=== PATIENT | female | born 1995 | race American Indian/Alaskan Native ===

== ENCOUNTER 2017-05-27 12:56 | Outpatient (CLI) | payer MEDICAID ==
[2017-05-27] MEDS ORDERED: LACTATED RINGERS 500 ML IV ONE (13:23)
[2017-05-27 13:30] VITALS: BP 122/65
[2017-05-27] MEDS ORDERED: LACTATED RINGERS 1,000 ML IV SCH (14:00)
[2017-05-27] MEDS ORDERED: PHENERGAN PR PRN (14:05)
[2017-05-27 14:32] LABS: Urine Drugs of Abuse Note Disclamer
[2017-05-27 14:36] LABS: Hematocrit 29.1 % (30.3-42.9); Hemoglobin 9.8 gm/dl (10.1-14.3); Mean Corpuscular HGB Conc 34 % (30-34); Mean Corpuscular Hemoglobin 28 pg (28-32); Mean Corpuscular Volume 81 fl (79-97); Platelet Count 210 K/mm3 (140-440); Red Blood Count 3.58 M/mm3 (3.65-5.03); Red Cell Distribution Width 12.7 % (13.2-15.2); White Blood Count 7.8 K/mm3 (4.5-11.0)
[2017-05-27 14:40] LABS: Bilirubin,Urine NEG (Negative); Blood,Urine NEG (Negative); Ketones,Urine NEG (Negative); Leukocyte Esterase,Urine TR (Negative); Mucus,Urine FEW /HPF; Nitrite,Urine NEG (Negative); Protein,Urine <15 mg/dL mg/dL (Negative); RBC,Urine < 1.0 /HPF (0.0-6.0); Urobilinogen,Urine < 2.0 mg/dL (<2.0)
[2017-05-27 15:57] LABS: Alanine Aminotransferase 8 units/L (7-56); Albumin 3.1 g/dL (3.9-5); Albumin/Globulin Ratio 0.9 %; Alkaline Phosphatase 68 units/L (35-129); Anion Gap 16 mmol/L; BUN/Creatinine Ratio 5; Bilirubin,Total < 0.20 mg/dL (0.1-1.2); Blood Urea Nitrogen 2 mg/dL (7-17); Calcium 8.4 mg/dL (8.4-10.2); Carbon Dioxide 21 mmol/L (22-30); Chloride 103.5 mmol/L (98-107); Glucose 74 mg/dL (65-100); Potassium 3.4 mmol/L (3.6-5.0); Sodium 137 mmol/L (137-145); Total Protein 6.5 g/dL (6.3-8.2)
== END 2017-05-27 17:25 | disposition home or self-care (01) ==
LOC: TRG 12:56
PROVIDERS: ATTEND Obstetrics & Gynecology
DX: O47.03 False labor before 37 completed weeks of gestation, third trimester (principal); Z3A.29 29 weeks gestation of pregnancy
CPT/HCPCS: 36415; 59025; 80053; 80307; 81001; 85027; 96360; 96361; J7120

== ENCOUNTER 2017-06-07 11:48 | Outpatient (CLI) | payer MEDICAID ==
[2017-06-07] MEDS ORDERED: LACTATED RINGERS 500 ML IV ONE (13:02)
[2017-06-07 13:15] VITALS: BP 102/53
== END 2017-06-07 14:20 | disposition home or self-care (01) ==
LOC: TRG 11:48
PROVIDERS: ATTEND Obstetrics & Gynecology
DX: O47.03 False labor before 37 completed weeks of gestation, third trimester (principal); Z3A.30 30 weeks gestation of pregnancy
CPT/HCPCS: 59025; 96360; J7120

== ENCOUNTER 2017-07-06 13:32 | Inpatient (IN) | payer MEDICAID ==
[2017-07-06] MEDS ORDERED: LACTATED RINGERS 500 ML IV ONE (14:26)
[2017-07-06] MEDS ORDERED: BRETHINE IVP ONE ×2 (15:23→18:00)
--- NOTE | 2017-07-06 16:34 | History and Physical Report ---
History of Present Illness Date of examination: 07/06/17 History of present illness: Patient presented to labor and delivery complaints of frequent contractions since early a.m. Initially patient exam was 1 cm. And had contractions every 3 -5 minutes. In triage the patient at treatment with IV hydration and subcutaneous terbutaline without suppressing her contractions. Patient's cervix did not change with these contractions. Patient's been admitted for tocolysis. Menstrual History Regularity: regular Menses every: 28 days Duration: 5 LMP: 11/05/2016 LMP reliability: definite test type: urine test Date: 04/24/2017 Planned ? no EDC Calculations LMP: 08/12/2017 EDC Confirmation: 08/12/2017 Past History : 1 Term Births: 0 Premature Births: 0 Living Children: 0 Para: 0 Mult. Births: 0 Prev : 0 Aborta: 0 Elect. Ab: 0 Spont. Ab: 0 Ectopics: 0 Past Medical History: Negative Past Medical History Past Surgical History: Negative Past Surgical History Past Medical History Surgery (Non-medical assistant ob gyn): Negative Past Surgical History Abnormal PAP: negative ANUP Exposure: negative Infertility: negative Uterine Anomaly: negative Uterine Surgery (not C/S): negative Other Gynecologic Problems: negative Medical History Comments: neg Family Hx: neg Social Hx: single no e/t/d Infection History Hx of STD: none Partner hx. of genital herpes: no Rash, Viral, or Febrile illness since last LMP? no Varicella/Chicken Pox Status: Immunized Genetic History Congenital Heart Defect: Mom: no Dad: no Tena Disease: Mom: no Dad: no Thalassemia Mom: no Dad: no Neural Tube Defect Mom: no Dad: no Down's Syndrome Mom: no Dad: no Shiv-Sachs Mom: no Dad: no Sickle Cell Disease/Trait Mom: no Dad: no Hemophilia Mom: no Dad: no Muscular Dystrophy Mom: no Dad: no Cystic Fibrosis Mom: no Dad: no [place] Chorea Mom: no Dad: no Mental Retardation Mom: no Dad: no Fragile X Mom: no Dad: no Other Genetic/Chromosomal Disorder Mom: no Dad: no Child w/other defect Mom: no Dad: no Enviromental Exposures Xray Exposure: no Medication, drug, or alcohol use since LMP: no Chemical/Other Exposure: no Exposure to Cat Liter: no Hx of Parvovirus (Fifth Disease): no Occupational Exposure to Children: none Current Allergies (reviewed today): No known allergies Past History Past Medical History: other (See HPI) Past Surgical History: other (See HPI) BACK FACER History: other (See HPI) Family/Genetic History: other (See HPI) Social history: other (See HPI) - Obstetrical History Expected Date of Delivery: 08/12/17 Actual Gestation: 34 Week(s) 5 Day(s) : 1 Para: 0 Hx # Term Pregnancies: 0 Number of Pregnancies: 0 Spontaneous Abortions: 0 Induced : 0 Number of Living Children: 0 Medications and Allergies Allergies Allergy/AdvReac Type Severity Reaction Status Date / Time No Known Allergies Allergy Unverified 05/27/17 13:22 Home Medications Medication Instructions Recorded Confirmed Last Taken Type No Known Home Medications [No 05/27/17 06/13/17 Unknown History Reported Home Medications] - Vital Signs Vital signs: Vital Signs Pulse BP 100 H 125/77 07/06/17 13:56 07/06/17 13:56 Temp Pulse Resp BP Pulse Ox 100 H 125/77 07/06/17 13:56 07/06/17 13:56 - Physical Exam Breasts: Positive: deferred Cardiovascular: Regular rate Lungs: Positive: Normal air movement Abdomen: Positive: normal appearance, soft Genitourinary (Female): Positive: normal external genitalia Vulva: both: normal Vagina: Positive: normal moisture Uterus: Positive: enlarged Anus/Rectum: Positive: normal perianal skin - Obstetrical FHR: category 2 Uterine Contraction Monitor Mode: Palpation Cervical Dilatation: 1 Cervical Effacement Percentage: 80 station: -2 Uterine Contraction Frequency (min): 3 to 5 Uterine Contraction Pattern: Regular Uterine Tone Measurement Phase: Resting Uterine Contraction Intensity: Moderate Results All other labs normal. Assessment and Plan - Patient Problems (1) labor Current Visit: Yes Status: Acute Qualifiers: labor trimester: third trimester Fetus number: single or unspecified fetus Plan to address problem: Patient admitted we'll start IV magnesium sulfate. Discussed with the patient and her mother risks of delivery. Discussed the risks including down along immaturity. Also discussed the side effects of IV magnesium sulfate. Patient's questions answered. Will monitor to rule out progression of labor. ICU team of been notified of patient's admission. (2) with 34 completed weeks gestation Current Visit: Yes Status: Acute
[2017-07-06] MEDS ORDERED: MILK OF MAGNESIA PO PRN (16:42)
[2017-07-06] MEDS ORDERED: ALUM-MAG HYDROX-SIMETH 200-200-20MG/5ML PO PRN (16:42)
[2017-07-06] MEDS ORDERED: TYLENOL PO PRN (16:42)
[2017-07-06] MEDS ORDERED: COLACE PO PRN (16:42)
[2017-07-06] MEDS ORDERED: MAGNESIUM SULFATE 4GM/100ML 4 GM/100 ML BAG IV ONE (16:48)
[2017-07-06] MEDS ORDERED: LACTATED RINGERS 1,000 ML IV SCH (17:00)
[2017-07-06] MEDS: STADOL IV PRN ×3 (17:38→23:05)
[2017-07-06] MEDS ORDERED: MAGNESIUM SULFATE 40GM/1000ML 40 GM/1,000 ML BAG IV SCH (17:45)
[2017-07-06] MEDS: POLYCILLIN/NS 2 GM/100 ML 2 GM/100 ML BAG IV SCH (18:01)
[2017-07-06 21:16] LABS: Hematocrit 33.8 % (30.3-42.9); Hemoglobin 10.8 gm/dl (10.1-14.3); Mean Corpuscular HGB Conc 32 % (30-34); Mean Corpuscular Volume 80 fl (79-97); Platelet Count 249 K/mm3 (140-440); Red Blood Count 4.21 M/mm3 (3.65-5.03); Red Cell Distribution Width 12.6 % (13.2-15.2)
[2017-07-06 21:17] LABS: Mean Corpuscular Hemoglobin 26 pg (28-32); White Blood Count 23.6 K/mm3 (4.5-11.0)
[2017-07-06 22:39] LABS: Basophils % (Manual) 0 % (0.0-1.8); Blastocytes % (Manual) 0 %; Eosinophils % (Manual) 0 % (0.0-4.3)
[2017-07-06 22:40] LABS: Diff Status Complete; Hypochromasia 1+; Ovalocytes Few
--- NOTE | 2017-07-06 23:33 | Event Note ---
Date: 07/06/17 Patient continued contractions despite the tocolysis and now with cervix changed to 4 cm and complaining of pain. We'll stop bifocal lysis allowed patient have epidural and follow expectant management for now
[2017-07-06] MEDS ORDERED: ePHEDrine SULFATE ONE (23:58)
[2017-07-07] MEDS: POLYCILLIN/NS 2 GM/100 ML 2 GM/100 ML BAG IV SCH (00:30)
[2017-07-07] MEDS ORDERED: NARCAN 2 MG/2 ML IV PRN (00:38)
[2017-07-07] MEDS ORDERED: ePHEDrine SULFATE IV PRN (00:38)
--- NOTE | 2017-07-07 00:38 | Anesthesia Consultation ---
Anesthesia Consult and Med Hx Date of service: 07/07/17 - Airway Anesthetic Teeth Evaluation: Good ROM Head & Neck: Adequate Mental/Hyoid Distance: Adequate Mallampati Class: Class II Intubation Access Assessment: Probably Good - Pulmonary Exam CTA: Yes - Cardiac Exam Cardiac Exam: RRR - Pre-Operative Health Status ASA Pre-Surgery Classification: ASA2 Proposed Anesthetic Plan: Epidural, Spinal - Pulmonary Hx Asthma: No COPD: No Hx Pneumonia: No - Cardiovascular System Hx Hypertension: No - Central Nervous System Hx Seizures: No Hx Psychiatric Problems: No - Endocrine Hx Renal Disease: No Hx End Stage Renal Disease: No Hx Hypothyroidism: No Hx Hyperthyroidism: No - Hematic Hx Anemia: No Hx Sickle Cell Disease: No - Other Systems Hx Alcohol Use: No Hx Obesity: Yes - Additional Comments Anesthesia Medical History Comments: IUP
[2017-07-07] MEDS ORDERED: fentaNYL-BUPIV 2 MCG/ML-0.125% 200 MCG/100 ML BAG EPIDURAL SCH (01:00)
[2017-07-07] MEDS ORDERED: METHERGINE IM ONE ×2 (02:34→02:50)
--- NOTE | 2017-07-07 02:49 | Procedure Note ---
OB Delivery Note - Delivery Date of Delivery: 07/07/17 Surgeon: BERNARDA PRITCHETT Estimated blood loss: other (400cc) - Vaginal Delivery presentation: vertex Delivery position: OA Intrapartum events: labor-<37 weeks Delivery induction: none Delivery augmentation: rupture of membranes Delivery monitor: external FHT, external uterine Route of delivery: Delivery placenta: spontaneous Delivery cord: nuchal cord Episiotomy: none Delivery laceration: none Anesthesia: epidural Delivery comments: NICU staff present at delivery - A at 1 minute: 6 at 5 minutes: 8 Infant Gender: Female
[2017-07-07] MEDS ORDERED: PITOCin/NS 20 UNIT/1000ML DRIP 20 UNITS/1,000 ML BAG IV SCH (04:00)
[2017-07-07] MEDS ORDERED: PHENERGAN PO PRN (05:38)
[2017-07-07] MEDS ORDERED: BENADRYL PO PRN (05:38)
[2017-07-07] MEDS ORDERED: SODIUM CHLORIDE FLUSH SYRINGE 10 ML IV PRN (05:38)
[2017-07-07] MEDS ORDERED: DULCOLAX PR PRN (05:38)
[2017-07-07] MEDS ORDERED: MILK OF MAGNESIA PO PRN (05:38)
[2017-07-07] MEDS ORDERED: NORCO 5/325 PO PRN (05:38)
[2017-07-07] MEDS ORDERED: TUCKS PAD TP PRN (05:38)
[2017-07-07] MEDS ORDERED: TYLENOL PO PRN (05:38)
[2017-07-07] MEDS: MOTRIN PO SCH ×3 (06:25→18:38)
[2017-07-07] MEDS ORDERED: PRENATAL VITAMIN PO SCH ×2 (10:00)
--- NOTE | 2017-07-07 12:16 | Progress Note ---
Assessment and Plan - Patient Problems (1) Vaginal delivery Current Visit: Yes Status: Acute (2) Chorioamnionitis, delivered, current hospitalization Current Visit: Yes Status: Acute Subjective - Subjective Date of service: 07/07/17 Principal diagnosis: PTL del at 34wk6d EGA, probable chorioamnionitis Interval history: Now only 10 hr pp after 34w5d EGA delivery, baby in NICU with possible sepsis but doing well. She is afebrile today, admit WBC was 23.6 Repeat CBC ordered for AM Patient reports: appetite normal, voiding normally, pain well controlled [place]: in NICU (5#3oz female, wants to breastfeed) Objective - Vital Signs Latest vital signs: Vital Signs Temp Pulse Resp BP BP Pulse Ox 07/07/17 08:20 98.8 F 110 H 20 128/67 07/07/17 05:58 99.2 F 108 H 20 114/55 07/07/17 05:15 99.1 F 135 H 18 98 07/07/17 05:13 55 L 0 L 07/07/17 05:07 131 H 93 07/07/17 05:05 124 H 96 07/07/17 05:00 118 H 126/63 98 07/07/17 04:55 122 H 98 07/07/17 04:53 131 H 94 07/07/17 04:50 119 H 97 07/07/17 04:45 133 H 129/62 98 07/07/17 04:40 125 H 97 07/07/17 04:37 130 H 121/62 07/07/17 04:35 101 F H 125 H 20 121/62 98 07/07/17 04:34 86 07/07/17 04:33 57 L 82 L 07/07/17 04:29 80 L 07/07/17 04:24 73 93 07/07/17 04:18 81 L 07/07/17 04:13 83 82 L 07/07/17 04:07 57 L 79 L 07/07/17 04:02 79 79 L 07/07/17 04:01 80 L 07/07/17 03:57 56 L 81 L 07/07/17 03:52 76 91 07/07/17 03:49 95 H 84 07/07/17 03:45 118 H 97 07/07/17 03:43 116 H 91 07/07/17 03:40 113 H 94 07/07/17 03:37 111 H 93 07/07/17 03:35 101 H 95 07/07/17 03:34 99.0 F 109 H 18 119/68 95 07/07/17 03:30 98 H 119/68 96 07/07/17 03:25 99 H 97 07/07/17 03:20 104 H 97 07/07/17 03:15 105 H 109/58 98 07/07/17 03:10 102 H 98 07/07/17 03:05 99 H 97 07/07/17 03:00 99 H 112/58 97 07/07/17 02:56 106 H 93 07/07/17 02:55 107 H 98 07/07/17 02:50 101 H 98 07/07/17 02:45 103 H 108/57 97 07/07/17 02:40 101 H 96 07/07/17 02:35 101 H 96 07/07/17 02:30 108 H 98 07/07/17 02:25 106 H 99 07/07/17 02:20 111 H 99 07/07/17 02:15 107 H 99 07/07/17 02:10 111 H 99 07/07/17 02:05 101 H 100 07/07/17 02:00 98 H 99 07/07/17 01:58 107 H 112/57 07/07/17 01:55 103 H 100 07/07/17 01:50 100 H 100 07/07/17 01:45 112 H 99 07/07/17 01:40 117 H 97 07/07/17 01:35 117 H 96 07/07/17 01:30 121 H 97 07/07/17 01:25 116 H 97 07/07/17 01:20 122 H 98 07/07/17 01:15 116 H 96 07/07/17 01:11 114 H 112/60 07/07/17 01:10 112 H 96 07/07/17 01:09 113 H 116/73 07/07/17 01:07 112 H 111/72 07/07/17 01:05 109 H 113/64 96 07/07/17 01:03 112 H 114/59 07/07/17 01:01 123 H 118/58 07/07/17 01:00 106 H 97 07/07/17 00:59 104 H 116/58 07/07/17 00:57 120 H 117/57 07/07/17 00:55 114 H 117/64 94 07/07/17 00:53 116 H 106/51 07/07/17 00:51 116 H 100/68 07/07/17 00:49 120 H 81/47 96 07/07/17 00:47 120 H 103/56 07/07/17 00:45 123 H 106/59 96 07/07/17 00:43 109 H 103/54 07/07/17 00:41 113 H 107/51 07/07/17 00:40 122 H 97 07/07/17 00:39 116 H 118/56 07/07/17 00:37 126/68 07/07/17 00:35 109 H 128/67 98 07/07/17 00:32 105 H 120/65 07/07/17 00:31 105 H 146/84 80 L 07/07/17 00:30 110 H 100 07/07/17 00:29 104 H 140/85 07/07/17 00:27 104 H 137/83 07/07/17 00:25 109 H 100 07/07/17 00:20 100 H 96 07/07/17 00:19 129 H 82 L 07/07/17 00:10 101 H 119/58 07/06/17 23:40 110 H 117/72 07/06/17 23:10 109 H 132/74 07/06/17 23:05 16 07/06/17 22:40 105 H 127/72 07/06/17 22:17 112 H 94 07/06/17 22:15 108 H 93 07/06/17 22:12 115 H 94 07/06/17 22:11 109 H 123/67 07/06/17 22:09 110 H 93 07/06/17 22:07 112 H 97 07/06/17 22:02 103 H 94 07/06/17 21:57 102 H 96 07/06/17 21:55 105 H 93 07/06/17 21:52 117 H 98 07/06/17 21:47 102 H 96 07/06/17 21:42 106 H 96 07/06/17 21:41 115 H 132/59 07/06/17 21:40 113 H 93 07/06/17 21:37 109 H 96 07/06/17 21:32 110 H 94 07/06/17 21:27 103 H 97 07/06/17 21:26 109 H 94 07/06/17 21:22 106 H 94 07/06/17 21:20 106 H 93 07/06/17 21:17 104 H 95 07/06/17 21:12 106 H 94 07/06/17 21:11 111 H 117/70 07/06/17 21:07 115 H 96 07/06/17 21:06 116 H 93 07/06/17 21:02 111 H 92 07/06/17 21:00 112 H 94 07/06/17 20:57 109 H 96 07/06/17 20:52 116 H 94 07/06/17 20:47 108 H 96 07/06/17 20:43 107 H 94 07/06/17 20:42 112 H 96 07/06/17 20:40 103 H 114/54 07/06/17 20:37 107 H 96 07/06/17 20:32 106 H 98 07/06/17 20:27 112 H 97 07/06/17 20:22 107 H 95 07/06/17 20:17 117 H 96 07/06/17 20:12 114 H 95 07/06/17 20:10 107 H 112/60 07/06/17 20:07 118 H 96 07/06/17 20:02 117 H 95 07/06/17 20:01 116 H 94 07/06/17 19:57 109 H 96 07/06/17 19:52 114 H 96 07/06/17 19:51 111 H 136/75 07/06/17 19:47 118 H 95 07/06/17 19:42 114 H 96 07/06/17 19:40 115 H 142/87 07/06/17 19:37 116 H 96 07/06/17 19:32 113 H 97 07/06/17 19:31 113 H 133/67 07/06/17 19:27 111 H 97 07/06/17 19:22 113 H 98 07/06/17 19:20 98.6 F 113 H 14 133/67 97 07/06/17 19:17 106 H 99 07/06/17 19:12 110 H 98 07/06/17 19:10 110 H 115/58 07/06/17 19:06 104 H 99 07/06/17 19:02 105 H 97 07/06/17 18:57 114 H 96 07/06/17 18:52 107 H 96 07/06/17 18:47 111 H 96 07/06/17 18:42 114 H 96 07/06/17 18:40 109 H 123/70 07/06/17 18:37 109 H 97 07/06/17 18:32 109 H 97 07/06/17 18:27 117 H 97 07/06/17 18:22 110 H 98 07/06/17 18:17 112 H 97 07/06/17 18:12 104 H 97 07/06/17 18:10 111 H 132/67 07/06/17 13:56 100 H 125/77 Intake and Output 07/06/17 07/07/17 07/07/17 23:59 07:59 15:59 Intake Total 100 Output Total 600 Balance 100 -600 Intake: IV 100 POLYCILLIN/NS 2 GM/100 ML 100 2 gm In 100 ml @ 100 mls /hr IV Q6HR [facility] Rx#: [id number] Output: Urine 600 Void 600 Other: Total, Output Amount 600 - Exam Breasts: Present: deferred Abdomen: Present: normal appearance, soft Uterus: Present: normal, firm Extremities: Present: normal - Labs Labs: Abnormal lab results 07/06/17 07/06/17 Range/Units 20:56 20:56 WBC 23.6 H (4.5-11.0) K/mm3 MCH 26 L (28-32) pg RDW 12.6 L (13.2-15.2) % Seg Neuts % (Manual) 78.0 H (40.0-70.0) % Lymphocytes % (Manual) 5.0 L (13.4-35.0) % Seg Neutrophils # Man 18.4 H (1.8-7.7) K/mm3 Monocytes # (Manual) 0.9 H (0.0-0.8) K/mm3 Magnesium 4.50 H (1.7-2.3) mg/dL
[2017-07-07 14:08] LABS: Hematocrit 30.6 % (30.3-42.9); Hemoglobin 10.1 gm/dl (10.1-14.3)
[2017-07-07 21:23] LABS: Basophils % (Auto) 0.2 % (0.0-1.8); Eosinophils % (Auto) 0.2 % (0.0-4.3); Hematocrit 29.1 % (30.3-42.9); Hemoglobin 9.7 gm/dl (10.1-14.3); Mean Corpuscular HGB Conc 33 % (30-34); Mean Corpuscular Hemoglobin 27 pg (28-32); Mean Corpuscular Volume 82 fl (79-97); Platelet Count 208 K/mm3 (140-440); Red Blood Count 3.55 M/mm3 (3.65-5.03); Red Cell Distribution Width 12.9 % (13.2-15.2); White Blood Count 15.1 K/mm3 (4.5-11.0)
[2017-07-08] MEDS: MOTRIN PO SCH ×3 (07:59→23:04)
--- NOTE | 2017-07-08 08:23 | Progress Note ---
Assessment and Plan - Patient Problems (1) Vaginal delivery Current Visit: Yes Status: Acute Plan to address problem: -routine pp care -d/c home in am Subjective - Subjective Date of service: 07/08/17 Principal diagnosis: PTL del at 34wk6d EGA, probable chorioamnionitis, PPD#1 Interval history: Pt doing well. Desires d/c tomorrow as infant still in NICU. No c/o today. Plans to breast/bottle feed. Patient reports: appetite normal, voiding normally, pain well controlled [place]: doing well, in NICU Objective - Vital Signs Latest vital signs: Vital Signs Temp Pulse Resp BP 07/08/17 00:30 98.6 F 66 16 121/78 07/07/17 17:01 97.7 F 82 18 124/72 Intake and Output 07/07/17 07/08/17 07/08/17 22:59 06:59 14:59 Intake Total 360 600 Balance 360 600 Intake: Oral 360 Intake, Free Water 600 Other: Total, Intake Amount 360 - Exam Cardiovascular: Present: Normal S1, Normal S2 Lungs: Present: Normal air movement Abdomen: Present: normal appearance, soft. Absent: distention, tenderness, guarding Uterus: Present: fundal height below umbilicus Deep Tendon Reflex Grade: Normal +2 - Labs Labs: Abnormal lab results 07/07/17 Range/Units 20:09 WBC 15.1 H (4.5-11.0) K/mm3 RBC 3.55 L (3.65-5.03) M/mm3 Hgb 9.7 L (10.1-14.3) gm/dl Hct 29.1 L (30.3-42.9) % MCH 27 L (28-32) pg RDW 12.9 L (13.2-15.2) % Lymph % (Auto) 9.4 L (13.4-35.0) % Seg Neutrophils % 85.7 H (40.0-70.0) % Seg Neutrophils # 13.0 H (1.8-7.7) K/mm3
[2017-07-09] MEDS: MOTRIN PO SCH (05:27)
[2017-07-09 08:00] VITALS: BP 104/64
--- NOTE | 2017-07-09 08:11 | Discharge Summary ---
Providers - Providers Date of Admission: 07/06/17 16:38 Date of discharge: 07/09/17 (desires d/c home) Attending physician: BERNARDA PRITCHETT 07/07/17 05:38 Consult to Fulfillment Associate [CONS] Routine Reason For Exam: assistance with , SNS Primary care physician: AKI WESLEY Hospitalization Reason for admission: active labor, labor Delivery: Episiotomy: none Laceration: none Other procedures: none complications: none Discharge diagnosis: delivery [place] baby: female Hospital course: Vaginal complicated by premature labor and delivery. VSSAF, patient desires d/c home today. remains in NICU. Condition at discharge: Good Disposition: DC-01 TO HOME OR SELFCARE - Discharge Diagnoses (1) delivery, delivered Status: Acute Plan - Provider Discharge Summary Activity: routine, no sex for 6 weeks, no heavy lifting 4 weeks, no strenuous exercise Diet: routine Instructions: routine Additional instructions: [] Smoking cessation referral if applicable(refer to patient education folder for contact #) [] Refer to [facility] Booklet Call your doctor immediately for: * Fever > 100.5 * Heavy vaginal bleeding ( >1 pad per hour) * Severe persistent headache * Shortness of breath * Reddened, hot, painful area to leg or breast * Drainage or odor from incision. * Keep incision clean and dry at all times and follow doctor's instructions regarding bathing/showering - Follow up plan Follow up: AKI WESLEY MD [Primary Care Provider] - 08/08/17 (Congratulations!! Please call [phone] to schedule your visit in 4 weeks. Call for any questions or concerns.)
== END 2017-07-09 11:00 | disposition home or self-care (01) | DRG 775 ==
LOC: TRG 13:32 → OBSVTOIN 16:38 → LD 16:38 → OB 07-07 05:30
PROVIDERS: ADMIT Obstetrics & Gynecology; ATTEND Obstetrics & Gynecology
PROC: 10E0XZZ Delivery of Products of Conception, External Approach (ICD-10-PCS; principal; 2017-07-07)
PROC: 3E0R3BZ Introduction of Anesthetic Agent into Spinal Canal, Percutaneous Approach (ICD-10-PCS; 2017-07-07)
PROC: 00HU33Z Insertion of Infusion Device into Spinal Canal, Percutaneous Approach (ICD-10-PCS; 2017-07-07)
DX: O60.14X0 Preterm labor third trimester with preterm delivery third trimester, not applicable or unspecified (principal); O69.81X0 Labor and delivery complicated by cord around neck, without compression, not applicable or unspecified; O41.1230 Chorioamnionitis, third trimester, not applicable or unspecified; O99.214 Obesity complicating childbirth; E66.9 Obesity, unspecified; Z68.36 Body mass index [BMI] 36.0-36.9, adult; Z3A.34 34 weeks gestation of pregnancy; Z37.0 Single live birth
CPT/HCPCS: 36415; 83735; 85007; 85014; 85018; 85025; 86592; 86850; 86900; 86901; 88307; 99211; G0463; J0290; J0595; J2210; J2590; J3105; J3475; J7120

== ENCOUNTER 2018-08-20 21:03 | Emergency (ER) | payer MEDICAID | END 2018-08-21 01:43 | disposition left against medical advice (07) | LOC: ED 21:03 ==